=== PATIENT | female | born 1950 | race Asian ===

== ENCOUNTER 2019-07-19 11:28 | Outpatient (CLI) | payer MEDICARE, OTHER ==
--- NOTE | 2019-07-19 14:49 | XRAY Report ---
Reason: RIGHT KNEE PAIN Procedure Date: 07/19/2019 Accession Number: [id number] / [id number] Procedure: XR - Knee 3 View RT CPT Code: FULL RESULT: EXAM: RIGHT KNEE RADIOGRAPHY EXAM DATE: 07/19/2019 11:46 AM. CLINICAL HISTORY: RIGHT KNEE PAIN. COMPARISON: None. TECHNIQUE: 3 views. FINDINGS: Bones: Normal. No fractures or bone lesions. Joints: Normal. No effusion. No subluxations. Soft Tissues: Normal. No soft tissue swelling. IMPRESSION: Normal knee radiography. RADIA
== END 2019-07-19 11:29 | disposition home or self-care (01) ==
LOC: DI 11:28
PROVIDERS: ATTEND Family Medicine
DX: M25.561 Pain in right knee (principal)

== ENCOUNTER 2022-09-18 11:30 | Outpatient (CLI) | payer MEDICARE, OTHER ==
[2022-09-18 11:51] LABS: CALCIUM 9.4 mg/dL (8.5-10.3); CREATININE 0.7 mg/dL (0.4-1.0); POTASSIUM 3.7 mmol/L (3.5-5.0)
== END 2022-09-18 11:31 | disposition home or self-care (01) ==
LOC: LAB 11:30
PROVIDERS: ATTEND Family Medicine
DX: U07.1 COVID-19 (principal)
CPT/HCPCS: 36415; 80048

== ENCOUNTER 2022-10-06 15:19 | Outpatient (CLI) | payer MEDICARE, OTHER ==
--- NOTE | 2022-10-07 12:47 | XRAY Report ---
PROCEDURE: Ankle 2 View LT INDICATIONS: LEFT ANKLE PAIN TECHNIQUE: 2 views of the ankle were acquired. COMPARISON: None FINDINGS: Bones: No fractures or dislocations. No definite mortise malalignment on this two-view exam. No angel picious bony lesions. Small plantar calcaneal spur. Soft tissues: No tibiotalar joint effusion. IMPRESSION: No acute osseous abnormality. If symptoms persist, follow-up radiographs and/or CT or MR I may be helpful for further evaluation. Reviewed by: Judd Mendes MD on 10/07/2022 12:45 PM PST Approved by: Judd Mendes MD on 10/07/2022 12:45 PM PST Station ID: [id number]
== END 2022-10-06 15:20 | disposition home or self-care (01) ==
LOC: DI 15:19
PROVIDERS: ATTEND Family Medicine
DX: M25.572 Pain in left ankle and joints of left foot (principal)

== ENCOUNTER 2023-04-28 04:05 | Emergency (ER) | payer MEDICARE, OTHER ==
--- OUTSIDE RECORDS SUMMARY | 2023-04-28 04:24 | EXTERNAL MEDICAL SUMMARY RPT | Continuity of Care Document ---
Author Name Unknown Address [address] [place] [address] Phone Organization [facility] Address [address] [place] [address] Phone Problems date description facility 2023-03-24 10:45 Encounter for screen ing mammogram for malignant neoplasm of [facility] 2023-03-24 11:35 Encounter for screen ing mammogram for malignant neoplasm [facility] Results/Labs test date author facility value unit interpretation Result panel 1 (unknown) (no date) (unknown) (unknown) (no value) (units unknown) (unknown) (unknown) (no date) (unknown) (unknown) / 25%-50% (units unknown) (unknown) (unknown) (no date) (unknown) (unknown) 03/24/23 (units unknown) (unknown) (unknown) (no date) (unknown) (unknown) [address] [place] [address] (un its unknown) (unknown) (unknown) (no date) (unknown) (unknown) 15% of breast malignancies will not be visualized mammographically. In the (units unknown) (unknown) (unknown) (no date) (unknown) (unknown) [id number] (units unknown) (unknown) (unknown) (no date) (unknown) (unknown) 3.4% and her 1 0 year risk is 2.3%. According to the ACR, ACS, and NCCN (units unknown) (unknown) (unknown) (no date) (unknown) (unknown) 02/11/2018 [facility]. (units unknown) (unknown) (unknown) (no date) (unknown) (unknown) ACR BI-RADS Category 1: Negative 3341F (units unknown) (unknown) (unknown) (no date) (unknown) (unknown) Accession Numb er: [id number] (units unknown) (unknown) (unknown) (no date) (unknown) (unknown) Age/Sex: 72 / F Date of Service: (units unknown) (unknown) (unknown) (no date) (unknown) (unknown) [place] [id number] (units unknown) (unknown) (unknown) (no date) (unknown) (unknown) Approximately (units unknown) (unknown) (unknown) (no date) (unknown) (unknown) BILATERAL DIGI STUART SCREENING MAMMOGRAM 3D/2D WITH CAD: 03/24/2023 (units unknown) (unknown) (unknown) (no date) (unknown) (unknown) Based on the T yrer [place] model (a risk assessment model) the patient's lifetime (units unknown) (unknown) (unknown) (no date) (unknown) (unknown) CLINICAL: Rout ine screening. (units unknown) (unknown) (unknown) (no date) (unknown) (unknown) Comparison is made to exams dated: 2020 mammogram, 12/28/2021 mammogram, and (units unknown) (unknown) (unknown) (no date) (unknown) (unknown) Current study was also evaluated with a Computer Aided Detection (CAD) system. (units unknown) (unknown) (unknown) (no date) (unknown) (unknown) : 2 Acct:[id number] (units unknown) (unknown) (unknown) (no date) (unknown) (unknown) Electronically Signed By: Jayy Owens M.D. (units unknown) (unknown) (unknown) (no date) (unknown) (unknown) IMPRESSION: NEGATIVE (units unknown) (unknown) (unknown) (no date) (unknown) (unknown) [facility] (uni ts unknown) (unknown) (unknown) (no date) (unknown) (unknown) Loc: MAMMO (units unknown) (unknown) (unknown) (no date) (unknown) (unknown) Mammography Report ( units unknown) (unknown) (unknown) (no date) (unknown) (unknown) NOTE: For mammograms, a report in lay terms will be sent to the patient. (units unknown) (unknown) (unknown) (no date) (unknown) (unknown) No significant masses, calcifications, or other findings are seen in either (units unknown) (unknown) (unknown) (no date) (unknown) (unknown) Ordering Provi don: Mp High D.O. (units unknown) (unknown) (unknown) (no date) (unknown) (unknown) Patient: Claudia Min MR#: [id number] (units unknown) (unknown) (unknown) (no date) (unknown) (unknown) Procedure: MM screening mammo BI (units unknown) (unknown) (unknown) (no date) (unknown) (unknown) Signed (units unknown) (unknown) (unknown) (no date) (unknown) (unknown) There are scat tered areas of fibroglandular density in both breasts (category b (units unknown) (unknown) (unknown) (no date) (unknown) (unknown) There has been no significant interval change. (units unknown) (unknown) (unknown) (no date) (unknown) (unknown) There is no mammographic evidence of malignancy. A 1 year screening mammogram is (units unknown) (unknown) (unknown) (no date) (unknown) (unknown) This exam was interpreted at Station ID: [id number]. (units unknown) (unknown) (unknown) (no date) (unknown) (unknown) a palpable nirav ast mass, a negative mammogram must not discourage biopsy of a (units unknown) (unknown) (unknown) (no date) (unknown) (unknown) annual breast MRI exam along with mammogram is recommended if the patient's (units unknown) (unknown) (unknown) (no date) (unknown) (unknown) breast. (units unknown) (unknown) (unknown) (no date) (unknown) (unknown) clinically (units unknown) (unknown) (unknown) (no date) (unknown) (unknown) glandular tissue). ( units unknown) (unknown) (unknown) (no date) (unknown) (unknown) guidelines, an (unit s unknown) (unknown) (unknown) (no date) (unknown) (unknown) is 20% or greater. ( units unknown) (unknown) (unknown) (no date) (unknown) (unknown) letter sent: N ormal Exam (units unknown) (unknown) (unknown) (no date) (unknown) (unknown) lifetime risk (units unknown) (unknown) (unknown) (no date) (unknown) (unknown) management of (units unknown) (unknown) (unknown) (no date) (unknown) (unknown) recommended. (units unknown) (unknown) (unknown) (no date) (unknown) (unknown) risk is (units unknown) (unknown) (unknown) (no date) (unknown) (unknown) slc/penrad:02/25 3 13:00:59 (units unknown) (unknown) (unknown) (no date) (unknown) (unknown) suspicious lesion. ( units unknown) (unknown)
[2023-04-28 04:55] LABS: BASOPHILS % (AUTO) 0.6 %; EOSINOPHILS # (AUTO) 0.1 10^3/uL (0.0-0.7); EOSINOPHILS % (AUTO) 1.8 %; HGB - HEMOGLOBIN 12.1 g/dL (12.0-16.0); LYMPHOCYTES # (AUTO) 3.4 10^3/uL (1.5-3.5); LYMPHOCYTES % (AUTO) 50.3 %; MEAN CORPUSCULAR HEMOGLOBIN 32.4 pg (27.0-31.0); MEAN CORPUSCULAR HGB CONC 32.7 g/dL (32.0-36.0); MEAN CORPUSCULAR VOLUME 98.9 fL (81.0-99.0); MEAN PLATELET VOLUME 9.8 fL (7.9-10.8); MONOCYTES # (AUTO) 0.5 10^3/uL (0.0-1.0); MONOCYTES % (AUTO) 6.9 %; NEUTROPHILS # (AUTO) 2.8 10^3/uL (1.5-6.6); NEUTROPHILS % (AUTO) 40.3 %; PLT - PLATELET COUNT 191 10^3/uL (130-450); RED BLOOD COUNT 3.74 10^6/uL (4.20-5.40); RED CELL DISTRIBUTION WIDTH 13.9 % (12.0-15.0); WHITE BLOOD COUNT 6.8 x10^3/uL (4.8-10.8)
[2023-04-28 05:09] LABS: ALBUMIN 3.9 g/dL (3.2-5.5); ALBUMIN/GLOBULIN RATIO 0.7 (1.0-2.2); BILIRUBIN,TOTAL 0.4 mg/dL (0.2-1.0); CALCIUM 8.4 mg/dL (8.5-10.3); CREATININE 0.7 mg/dL (0.4-1.0); POTASSIUM 3.3 mmol/L (3.5-5.0); TOTAL PROTEIN 9.6 g/dL (6.7-8.2)
--- NOTE | 2023-04-28 05:44 | ED Physician Documentation ---
History of Present Illness - Stated complaint Stated Complaint: RECTAL BLEED - Chief complaint Chief Complaint: General - History obtained from History obtained from: Patient - Additonal information Additional information: The patient comes to the emergency department chief complaint of rectal bleeding. She states that she felt the urge to have a bowel movement this morning and that Her feces was thick and hard. She states that when she went to wipe, she looked in the toilet bowl and saw that the water was red. She states that she has not had any bleeding in between bowel movements. This is never happened to her before. She denies any anal pain. No abdominal pain. No lightheadedness, shortness of breath, or chest pain. The patient had a colonoscopy about 10 years ago and states it was unremarkable. She has not had any black stools recently. She is not anticoagulated. No other complaints at this time. 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 - Present Medications Home Medications: Ambulatory Orders Medication Instructions Recorded Confirmed Losartan Potassium 50 mg PO DAILY 04/28/23 04/28/23 Multivit-Min/Iron/Folic Acid/K 1 tab PO DAILY 04/28/23 04/28/23 [One Daily Women's Multivitamin] - Allergies Allergies/Adverse Reactions: Allergies Allergy/AdvReac Type Severity Reaction Status Date / Time No Known Drug Allergies Allergy Verified 04/28/23 04:21 - Social History Does the pt smoke?: No Smoking Status: Never smoker Does the pt drink ETOH?: No Does the pt have substance abuse?: No - Immunizations Immunizations are current?: Yes - POLST Patient has POLST: No PD ED PE NORMAL - Vitals Vital signs reviewed: Yes - General General: Alert and oriented X 3, No acute distress - HEENT HEENT: Atraumatic, PERRL, EOMI, Moist mucous membranes - Neck Neck: Supple, no meningeal sign - Cardiac Cardiac: RRR, No murmur - Respiratory Respiratory: No respiratory distress, Clear bilaterally - Abdomen Abdomen: Soft, Non tender, Non distended - Rectal Rectal: Other (Small deflated external hemorrhoid versus anal skin tag. No masses on digital rectal exam. Very tiny blood-tinged mucus on glove.) - Derm Derm: Normal color, Warm and dry, No rash - Extremities Extremities: No deformity - Neuro Neuro: Alert and oriented X 3 - Psych Psych: Normal mood, Normal affect Results - Vitals Vitals: Vital Signs - 24 hr 04/28/23 04/28/23 04/28/23 04:16 04:50 05:40 Temperature 36.6 C Heart Rate 74 71 64 Respiratory 16 20 20 Rate Blood Pressure 179/80 H 171/88 H 158/78 H O2 Saturation 95 97 94 Oxygen O2 Source Room air - Labs Labs: Laboratory Tests 04/28/23 04/28/23 04:46 04:46 WBC 6.8 RBC 3.74 L Hgb 12.1 Hct 37.0 MCV 98.9 MCH 32.4 H MCHC 32.7 RDW 13.9 Plt Count 191 MPV 9.8 Neut # (Auto) 2.8 Lymph # (Auto) 3.4 [place] # (Auto) 0.5 Eos # (Auto) 0.1 Baso # (Auto) 0.0 Absolute Nucleated RBC 0.00 Nucleated RBC % 0.0 Sodium 137 Potassium 3.3 L Chloride 106 Carbon Dioxide 23 Anion Gap 8.0 BUN 28 H Creatinine 0.7 Estimated GFR (MDRD) 82 L Glucose 111 H Calcium 8.4 L Total Bilirubin 0.4 AST 34 ALT 36 Alkaline Phosphatase 52 Total Protein 9.6 H Albumin 3.9 Globulin 5.7 H Albumin/Globulin Ratio 0.7 L Lipase 41 PD Medical Decision Making - ED course Complexity details: reviewed results, re-evaluated patient, considered differential, d/w patient, d/w family ED course: I discussed with the patient and her that most likely, her bleeding is coming from the anus itself, either from a hemorrhoid or an anal fissure. The patient's labs look good and I feel the patient is stable for discharge home. We have discussed the need for follow-up to discuss repeat colonoscopy, should the patient's bleeding continue for more than a couple of weeks. Departure - Departure Disposition: 01 Home, Self Care Clinical Impression: Lower GI bleeding Condition: Stable Instructions: ED Hematochezia Stable Comments: Your blood work looks great. Your rectal exam does not reveal any evidence of ongoing or heavy bleeding. The nature of your bleeding is most consistent with a source that is right at around the anus. As we have discussed, the pattern and color of the blood in or with your stool can help indicate where the bleeding is coming from. At this point, your bleeding is most likely benign and will resolve on its own. However, if you continue to have rectal bleeding for more than the next couple of weeks, you should make an appoint with your primary doctor to discuss having another colonoscopy done. If you develop severe bleeding or become very weak or short of breath, you should return to the emergency department immediately. For now, you should eat a high-fiber diet with things like fresh fruits and vegetables and whole grains to help encourage softer stools and reduce the strain and pressure on your anal area. This will also help reduce the likelihood of further bleeding.
[2023-04-28 05:46] VITALS: BP 158/78
== END 2023-04-28 06:00 | disposition home or self-care (01) ==
LOC: ED 04:05
DX: K92.2 Gastrointestinal hemorrhage, unspecified (principal)
CPT/HCPCS: 36415; 80053; 83690; 85025; 99283; 99284